=== PATIENT | female | born 1985 | race Caucasian/White ===

== ENCOUNTER 2021-02-27 13:10 | Emergency (ER) | payer MEDICAID, OTHER ==
[2021-02-27] MEDS ORDERED: Ondansetron 4 MG/2 ML SDV IVPUSH ONE (13:51)
--- NOTE | 2021-02-27 13:53 | EDM.PDOC ---
ED HPI GENERAL MEDICAL PROBLEM - General Chief Complaint: Abdominal Pain Stated Complaint: STOMACH PAIN Time Seen by Provider: 02/27/21 13:40 Source of Information: Reports: Patient, Family History Limitations: Reports: No Limitations - History of Present Illness INITIAL COMMENTS - FREE TEXT/NARRATIVE: 36-year-old female sent in from the clinic because of lower abdominal pain since last night. It started 1/2-hour after supper, became very intense but then settled down for a while and she was able to get some sleep but this morning it is very bad again, with nausea and rebound tenderness. She has a history of ovarian cysts requiring 2 or 3 surgeries but no other abdominal surgeries. Nausea but no vomiting, no fevers or chills. Onset: Gradual Duration: Hour(s): (Pain building for the past 16 to 18 hours) Location: Reports: Abdomen (Especially lower abdomen more on the right side) Quality: Reports: Sharp, Stabbing Improves with: Reports: None Worsens with: Reports: Movement Associated Symptoms: Reports: Headaches, Nausea/Vomiting. Denies: Fever/Chills Abdomen Pain Score (Numeric/FACES): 7 - Related Data Allergies Allergy/AdvReac Type Severity Reaction Status Date / Time No Known Allergies Allergy Verified 02/27/21 13:32 Home Meds: Home Meds Cholecalciferol (Vitamin D3) [Vitamin D] 5,000 unit PO DAILY 02/27/21 [History] Eletriptan Hydrobromide [Relpax] 40 mg PO ASDIRECTED 02/27/21 [History] Loratadine [Claritin] 20 mg PO DAILY 02/27/21 [History] Magnesium Oxide [Magnesium] 800 mg PO DAILY 02/27/21 [History] Phytonadione [Vitamin K] 100 mcg PO DAILY 02/27/21 [History] Pseudoephedrine HCl [Sudafed] 30 mg PO ASDIRECTED 02/27/21 [History] norethindrone ac-eth estradioL [Junel 1 mg-20 Mcg Tablet] 1 tab PO DAILY 02/27/21 [History] Past Medical History Gastrointestinal History: Reports: Other (See Below) Other Gastrointestinal History: hx ulcers [employer] History: Reports: Endometriosis, , Other (See Below) Other [employer] History: two laparoscopic ovarian cyst removals. Musculoskeletal History: Reports: Other (See Below) Other Musculoskeletal History: plantar fasciitis Neurological History: Reports: Migraines - Past Surgical History Female Surgical History: Reports: Section Social & Family History - Tobacco Use Tobacco Use Status *Q: Never Tobacco User - Caffeine Use Caffeine Use: Reports: Coffee, Tea - Alcohol Use Days Per Week of Alcohol Use: 2 Number of Drinks Per Day: 2 Total Drinks Per Week: 4 - Recreational Drug Use Recreational Drug Use: No ED ROS GENERAL - Review of Systems Review Of Systems: See Below Constitutional: Reports: Malaise. Denies: Fever, Chills HEENT: Denies: Vision Change Respiratory: Denies: Shortness of Breath Cardiovascular: Denies: Chest Pain GI/Abdominal: Reports: Abdominal Pain, Nausea. Denies: Vomiting : Reports: No Symptoms Skin: Reports: No Symptoms Neurological: Reports: Headache ED EXAM, GI/ABD - Physical Exam Exam: See Below Exam Limited By: No Limitations General Appearance: Alert, Anxious, Mild Distress (Looks uncomfortable) Eyes: Bilateral: Normal Appearance Head: Atraumatic Respiratory/Chest: No Respiratory Distress, Lungs Clear Cardiovascular: Regular Rate, Rhythm GI/Abdominal Exam: Soft, Tender (Very tender across lower abdomen, mild guarding and rebound in the right lower quadrant) Neurological: Alert, Oriented Psychiatric: Normal Affect, Normal Mood Skin Exam: Warm, Dry Course - Vital Signs Last Recorded V/S: Last Vital Signs Temp 97.9 F 02/27/21 13:31 Pulse 72 02/27/21 14:29 Resp 16 02/27/21 13:31 BP 113/65 02/27/21 14:29 Pulse Ox 100 02/27/21 13:31 - Orders/Labs/Meds Labs: Laboratory Tests 02/27/21 02/27/21 Range/Units 13:51 13:51 WBC 12.2 H (4.5-11.0) K/uL RBC 4.53 (3.30-5.50) M/uL Hgb 13.7 (12.0-15.0) g/dL Hct 41.2 (36.0-48.0) % MCV 91 (80-98) fL MCH 30 (27-31) pg MCHC 33 (32-36) % Plt Count 264 (150-400) K/uL Neut % (Auto) 73.2 H (36-66) % Lymph % (Auto) 18.4 L (24-44) % [place] % (Auto) 7.0 H (2-6) % Eos % (Auto) 1.2 L (2-4) % Baso % (Auto) 0.2 (0-1) % Sodium 141 (140-148) mmol/L Potassium 4.2 (3.6-5.2) mmol/L Chloride 105 (100-108) mmol/L Carbon Dioxide 26 (21-32) mmol/L Anion Gap 10.0 (5.0-14.0) mmol/L BUN 10 (7-18) mg/dL Creatinine 0.9 (0.6-1.0) mg/dL Est Cr Clr Drug Dosing 85.50 mL/min Estimated GFR (MDRD) > 60 (>60) Glucose 91 (74-106) mg/dL Calcium 8.6 (8.5-10.1) mg/dL Total Bilirubin 0.2 (0.2-1.0) mg/dL AST 20 (15-37) U/L ALT 37 (12-78) U/L Alkaline Phosphatase 53 (46-116) U/L Total Protein 6.7 (6.4-8.2) g/dL Albumin 3.7 (3.4-5.0) g/dL Globulin 3.0 (2.3-3.5) g/dL Albumin/Globulin Ratio 1.2 (1.2-2.2) Lipase 138 (73-393) U/L Meds: Medications Discontinued Medications Generic Name Dose Route Start Last Admin Trade Name Freq PRN Reason Stop Dose Admin Sodium Chloride 1,000 mls @ 500 mls/hr 02/27/21 14:00 02/27/21 14:10 Normal Saline IV 500 mls/hr ASDIRECTED AUGUSTO Administration Ondansetron HCl 4 mg 02/27/21 13:51 02/27/21 14:08 Ondansetron 4 Mg/2 Ml Sdv IVPUSH 02/27/21 13:52 4 mg ONETIME ONE Administration - Re-Assessments/Exams Free Text/Narrative Re-Assessment/Exam: 02/27/21 14:12 IV was started, CBC CMP and lipase were obtained and the patient was given 4 mg of IV Zofran. CT of the abdomen and pelvis without contrast was ordered. 02/27/21 14:48 White count is mildly elevated at 12,200, all other labs normal. CT does show a complex cyst in the right adnexa up to 5 cm, ultrasound recommended so this was ordered for baseline. 02/27/21 16:26 Ultrasound confirmed cystic lesions in the right ovary but no free fluid and good blood flow to the ovary. She will be placed on Toradol 3 times a day through the weekend and recheck next week if not improving satisfactorily. She can return anytime if worsening despite treatment. Departure - Departure Time of Disposition: 16:47 Disposition: Home, Self-Care 01 Clinical Impression: Ovarian cyst, right Abdominal pain Qualifiers: Abdominal location: lower abdomen, unspecified Qualified Code(s): R10.30 - Lower abdominal pain, unspecified - Discharge Information Instructions: Ovarian Cyst, [id number] Referrals: PCP,None [Primary Care Provider] - Forms: ED Department Discharge Care Plan Goals: Take 1 Toradol 3 times a day through the weekend, and recheck next week if not improving satisfactorily. Return sooner if worsening despite the pain medication, especially if you develop fever or intractable pain Sepsis Event Note (ED) - Evaluation Sepsis Screening Result: No Definite Risk
[2021-02-27] MEDS ORDERED: Sodium Chloride 0.9% 1,000 ML IV SCH (14:00)
--- NOTE | 2021-02-27 14:42 | CT ---
Abdomen Pelvis wo Cont CLINICAL HISTORY: Abdominal pain COMPARISON: None. TECHNIQUE: Axial tomographic images are obtained from the dome of the diaphragm to the pubic symphysis without IV contrast enhancement. No oral contrast was used. The dosage reduction and iterative reconstruction techniques employed. FINDINGS: The lung bases are clear. The liver contains a subcentimeter low-attenuation focus in the dome which is felt to represent small cyst.. The gallbladder is contracted. The spleen has a normal size and shape. There is a small granuloma.. The pancreas shows no mass or inflammatory change. The adrenal glands appear normal bilaterally. The kidneys show no stones or hydronephrosis. Ureters have a normal course and caliber. The bladder is mildly distended. Uterus has normal contour. There is a 5.1 x 4.9 x 3.9 cm cystic focus in the right adnexal region. There are some marginal calcifications. No free fluid is identified. The aorta has a normal contour. There is no suspicious retroperitoneal adenopathy. The small intestinal configuration is nonacute. There is gas and feces throughout the colon. There is some mild sigmoid diverticulosis without evidence of diverticulitis. IMPRESSION: 5.1 x 4.9 x 3.9 cm complex cyst in the right adnexal region. There is no free fluid. Ultrasound correlation recommended on a nonemergent basis. Small cyst in the dome of the liver
--- NOTE | 2021-02-28 09:46 | US ---
Pelvis Non OB Ltd CLINICAL HISTORY: Right lower quadrant pain, right adnexal cyst FINDINGS: Real-time transabdominal images were obtained through the pelvis. The uterus has a normal contour. It measures 8.0 x 3.4 cm. Atrial thickness is 5 mm. In the right adnexal region is a 3.6 x 3.5 x 3.5 cm complex cystic mass contiguous to this region is a 1.8 x 1.6 x 1.5 cm follicular type cyst. No internal flow is identified No free fluid is seen. Left ovary measures 3.4 x 3.0 x 1.5 cm. IMPRESSION: 3.6 x 3.5 x 3.5 centimeter complex cystic mass in the adnexal region. This may represent a hemorrhagic cyst. Short-term follow-up ultrasound is recommended in one to 2 months. If clinical symptomatology worsens evaluation should be performed sooner.
== END 2021-02-27 16:47 | disposition home or self-care (01) ==
LOC: JP.ED 13:10
DX: N83.201 Unspecified ovarian cyst, right side (principal)
CPT/HCPCS: 36415; 74176; 76857; 80053; 83690; 85025; 96374; 99284; J2405; J7030